=== PATIENT | female | born 1980 | race Caucasian/White ===

== ENCOUNTER 2016-12-19 20:59 | Emergency (ER) | payer MEDICAID | END 2016-12-19 22:20 | disposition home or self-care (01) | DX: L76.34 Postprocedural seroma of skin and subcutaneous tissue following other procedure (principal); Y83.8 Other surgical procedures as the cause of abnormal reaction of the patient, or of later complication, without mention of misadventure at the time of the procedure ==

== ENCOUNTER 2017-03-27 23:42 | Emergency (ER) | payer BC, MEDICAID ==
[2017-03-27 23:49] VITALS: BP 147/90
[2017-03-28] MEDS ORDERED: DEXAMETHASONE 10 MG/ML VIAL PO STA (01:09)
[2017-03-28] MEDS ORDERED: IBUPROFEN 600 MG TABLET PO STA (01:09)
--- NOTE | 2017-03-28 01:13 | XRAY Preliminary Report ---
Exam: XR Shoulder 3 View LT IMPRESSION: 1. No acute bony abnormality. 2. Small well-corticated ossific fragment at the superior margin of the glenohumeral joint, likely an accessory ossicle or a sequela of remote injury. [facility] SITE ID: [id number]
[2017-03-28] MEDS ORDERED: CHERRY SYRUP 10 ML UDC PO ONE (01:18)
[2017-03-28] MEDS ORDERED: IBUPROFEN 600 MG TABLET PO ONE (01:18)
[2017-03-28] MEDS ORDERED: DEXAMETHASONE 10 MG/ML VIAL ONE (01:18)
--- NOTE | 2017-03-28 01:21 | XRAY Report ---
EXAM: LEFT SHOULDER RADIOGRAPHY EXAM DATE: 03/28/2017 12:37 AM. CLINICAL HISTORY: Increasing left shoulder pain since Saturday. COMPARISON: None. TECHNIQUE: 3 views. FINDINGS: Bones: No acute displaced fracture or bone lesion. There is a small well-corticated ossific fragment projecting near the glenohumeral joint superiorly, seen on the internal and external rotated views. T his is likely paraarticular. This may be a sequela of remote injury or an accessory ossicle. Joints: No dislocation. Soft tissues: The visualized hemithorax is unremarkable. No soft tissue swelling. IMPRESSION: 1. No acute bony abnormality. 2. Small well-corticated ossific fragment at the superior margin of the glenohumeral joint, likely an accessory ossicle or a sequela of remote injury. [facility] Referring Provider Line: [phone] SITE ID: [id number]
--- NOTE | 2017-03-28 01:23 | ED Physician Documentation ---
PD HPI UPPER EXT INJURY - Stated complaint Stated Complaint: LT SHOULDER PX - Chief complaint Chief Complaint: Ext Problem - History obtained from History obtained from: Patient, Family - History of Present Illness Location: Left, Shoulder Where injury occurred: Home Timing - onset: Yesterday Timing - details: Gradual onset, Still present Improved by: Immobilization Worsened by: Moving, Palpating Associated symptoms: No: Weakness, Numbness, Tingling, Swelling, Discolored Similar symptoms before: Has not had sx before Recently seen: Not recently seen - Additonal information Additional information: Patient is a 36 year old female with a history of bursitis in her hip, who is presenting to the emergency department for left sided shoulder pain. patient states that it has been going on the last few days and has become progressively worse. Patient denies any trauma, new activities or repetitive motion. Patient states that she has tried ice, heat and nsaids with little relief. Review of Systems Constitutional: denies: Fever, Chills Nose: denies: Rhinorrhea / runny nose, Congestion Throat: denies: Oral lesions / sores, Sore throat Cardiac: denies: Chest pain / pressure, Palpitations Respiratory: denies: Cough GI: denies: Abdominal Pain, Nausea, Vomiting : denies: Dysuria, Frequency, Hesitancy Skin: denies: Rash, Lesions, Abrasion (s) Musculoskeletal: reports: Extremity pain, Joint pain. denies: Extremity swelling, Joint swelling Neurologic: denies: Generalized weakness, Focal weakness, Numbness, Difficulty speaking Immunocompromised: denies: Immunocompromised PD PAST MEDICAL HISTORY - Past Medical History Past Medical History: Yes Cardiovascular: None Respiratory: None Neuro: None Endocrine/Autoimmune: None GI: None GRINDER SET UP OPERATOR: None : None HEENT: None Psych: Depression, Anxiety Musculoskeletal: Osteoarthritis, Chronic back pain, Other Derm: None - Past Surgical History Past Surgical History: Yes /GRINDER SET UP OPERATOR: Dilation and currettage - Present Medications Home Medications: Ambulatory Orders Medication Instructions Recorded Confirmed Gabapentin 300 mg PO QPM PRN 01/05/15 07/22/15 Diclofenac Sodium 50 mg PO BID PRN 07/22/15 07/22/15 - Allergies Allergies/Adverse Reactions: Allergies Allergy/AdvReac Type Severity Reaction Status Date / Time Penicillins Allergy Unknown Verified 03/27/17 23:49 - Social History Does the pt smoke?: No Smoking Status: Never smoker Does the pt drink ETOH?: Yes ETOH Use: Beer Does the pt have substance abuse?: No - Immunizations Immunizations are current?: Yes - POLST Patient has POLST: No PD ED PE NORMAL - Vitals Vital signs reviewed: Yes - General General: Alert and oriented X 3, No acute distress - HEENT HEENT: Atraumatic, PERRL - Neck Neck: Supple, no meningeal sign - Cardiac Cardiac: RRR, No murmur - Respiratory Respiratory: No respiratory distress - Abdomen Abdomen: Soft - Derm Derm: Normal color, Warm and dry, No rash - Neuro Neuro: Alert and oriented X 3, No sensory deficit, Normal speech - Psych Psych: Normal mood, Normal affect PD ED PE EXPANDED - Extremities Extremities: Left shoulder (tenderness to palpation of anterior shoulder, decreased rom secondary to pain, no swelling, erythema or other rash), Sensory intact, Vascular intact. No: Decreased/absent pulse Results - Vitals Vitals: Vital Signs - 24 hr 03/27/17 23:47 Temperature 36 C L Heart Rate 75 Respiratory 20 Rate Blood Pressure 147/90 H O2 Saturation 97 Oxygen O2 Source Room air - Rads (name of study) left shoulder x-ray Radiology: Final report received (no acute bony abnormality), See rad report PD MEDICAL DECISION MAKING - ED course Complexity details: reviewed old records, reviewed results, re-evaluated patient , considered differential, d/w patient, d/w family ED course: Patient was seen and examined at bedside. Patient was sent for imaging. when patient returned she was treated with ibuprofen and decadron. there was no acute abnormality on imaging. Patient had good peripheral pulses and reproducible. Patient required no further inpatient work up and was stable for discharge with outpatient follow up. Departure - Departure Disposition: 01 Home, Self Care Clinical Impression: Left anterior shoulder pain Condition: Good Instructions: Exercise Shoulder Isometric Follow-Up: Malissa Sheehan ARNP [Primary Care Provider] - Within 1 week Comments: Your diagnostics today were within normal limits. there was no acute bony abnormality on your x-ray. it is difficult to say what is causing your pain. A tendonitis versus a bursitis. They are both treated with ice/heat and nsaids. If you symptoms persist for more than 7-10 days you should follow up with your pmd or your orthopedist. You may return to the emergency department at any time if necessary for new, worsening or uncontrollable symptoms.
== END 2017-03-28 01:34 | disposition home or self-care (01) ==
LOC: ED 23:42
DX: M25.512 Pain in left shoulder (principal); Z87.39 Personal history of other diseases of the musculoskeletal system and connective tissue
CPT/HCPCS: 73030; 99283; A9270

== ENCOUNTER 2017-11-18 08:00 | Outpatient (CLI) | payer BC, OTHER ==
[2017-11-18 17:28] LABS: BILIRUBIN,URINE NEGATIVE (NEGATIVE); GLUCOSE, URINE (UA) NEGATIVE (NEGATIVE); KETONES,URINE (UA) NEGATIVE (NEGATIVE); LEUKOCYTE ESTERASE, URINE TRACE (NEGATIVE); NITRITE,URINE POSITIVE (NEGATIVE); OCCULT BLOOD,URINE LARGE (NEGATIVE); PROTEIN,URINE NEGATIVE (NEGATIVE); UROBILINOGEN,URINE 0.2 (NORMAL) E.U./dL (NORMAL)
[2017-11-18 17:38] LABS: BACTERIA,URINE Moderate /HPF (None Seen); CLARITY,URINE CLEAR (CLEAR); RBC,URINE 0-5 /HPF (0-5); SQUAMOUS EPITHELIAL CELL,UR FEW Squamous (<= Few)
== END 2017-11-18 08:01 ==
LOC: LAB.S 08:00
PROVIDERS: ATTEND Nurse Practitioner Family
DX: R30.0 Dysuria (principal)
CPT/HCPCS: 81001; 87086

== ENCOUNTER 2019-04-08 16:44 | Outpatient (CLI) | payer OTHER ==
--- NOTE | 2019-04-09 09:23 | Mammography Report ---
Reason: SCREEN NEOPLASM,BREAST,ROUTINE MAMMOGRAM Procedure Date: 04/08/2019 Accession Number: [id number] / [id number] Procedure: ABBY - Screening Mammo w/Mateo CPT Code: FULL RESULT: EXAM: Screening Mammo w/Mateo DATE: 04/08/2019 5:15 PM CLINICAL HISTORY: Screening TECHNIQUE: (B) - Bilateral CC and MLO views were obtained. Indication bilateral 3-D mapping was performed. COMPARISON: None PARENCHYMAL PATTERN: (A) - The breasts demonstrate scattered fibroglandular densities bilaterally. FINDINGS: There are no suspicious masses, calcifications, or areas of distortion. IMPRESSION: Negative examination. BI-RADS category 1. RECOMMENDATION: (ANNUAL) - Recommend routine annual screening mammography. BI-RADS CATEGORY: (1) - Negative. STANDARD QUALIFYING STATEMENTS: 1. This examination was not reviewed with the aid of Computer-Aided Detection (CAD). 2. A negative or benign imaging report should not preclude biopsy if clinically suspicious findings are present. 3. Dense breasts may obscure an underlying neoplasm. 4. This examination was reviewed with the aid of 3D breast imaging (tomosynthesis).
== END 2019-04-08 16:45 | disposition home or self-care (01) ==
LOC: DI 16:44
PROVIDERS: ATTEND Naturopath
DX: Z12.31 Encounter for screening mammogram for malignant neoplasm of breast (principal)
CPT/HCPCS: 77063; 77067

== ENCOUNTER 2019-08-26 07:11 | Outpatient (CLI) | payer OTHER ==
[2019-08-26 10:35] LABS: BASOPHILS # (AUTO) 0.1 10^3/uL (0.0-0.1); BASOPHILS % (AUTO) 0.5 %; EOSINOPHILS # (AUTO) 0.3 10^3/uL (0.0-0.7); EOSINOPHILS % (AUTO) 2.9 %; HGB - HEMOGLOBIN 13.7 g/dL (12.0-16.0); LYMPHOCYTES # (AUTO) 3.8 10^3/uL (1.5-3.5); LYMPHOCYTES % (AUTO) 36.1 %; MEAN CORPUSCULAR HEMOGLOBIN 30.1 pg (27.0-31.0); MEAN CORPUSCULAR HGB CONC 32.8 g/dL (32.0-36.0); MEAN CORPUSCULAR VOLUME 91.9 fL (81.0-99.0); MEAN PLATELET VOLUME 12.4 fL (7.9-10.8); MONOCYTES # (AUTO) 0.5 10^3/uL (0.0-1.0); MONOCYTES % (AUTO) 4.6 %; NEUTROPHILS # (AUTO) 5.8 10^3/uL (1.5-6.6); NEUTROPHILS % (AUTO) 55.4 %; PLT - PLATELET COUNT 225 10^3/uL (130-450); RED BLOOD COUNT 4.55 10^6/uL (4.20-5.40); RED CELL DISTRIBUTION WIDTH 12.4 % (12.0-15.0); WHITE BLOOD COUNT 10.5 x10^3/uL (4.8-10.8)
[2019-08-26 11:08] LABS: ALBUMIN 3.7 g/dL (3.2-5.5); ALKALINE PHOSPHATASE 86 IU/L (42-121); ALT ALANINE AMINOTRANSFERASE 21 IU/L (10-60); AST ASPARTATE AMINOTRANSFERASE 21 IU/L (10-42); BILIRUBIN,TOTAL 0.7 mg/dL (0.2-1.0); BUN - BLOOD UREA NITROGEN 13 mg/dL (6-20); CALCIUM 9.4 mg/dL (8.5-10.3); CARBON DIOXIDE - CO2 25 mmol/L (21-32); CHLORIDE 100 mmol/L (101-111); CHOL/HDL RATIO 9.1 (<4.4); CHOLESTEROL 310 mg/dL; CREATININE 0.6 mg/dL (0.4-1.0); GFR - MDRD 110 (>89); GLUCOSE 240 mg/dL (70-100); HDL CHOLESTEROL 34 mg/dL; SODIUM 133 mmol/L (135-145); TOTAL PROTEIN 7.4 g/dL (6.7-8.2)
[2019-08-26 11:28] LABS: LDL CHOLESTEROL,DIRECT 93 mg/dL; LDLD/HDL RATIO 2.7 (<4.4)
[2019-08-26 11:36] LABS: HEMOGLOBIN A1C 1.14 g/dL; HEMOGLOBIN A1C % 9.6 % (4.6-6.2)
[2019-08-26 11:49] LABS: FREE T4 (FREE THYROXINE) 0.69 ng/dL (0.58-1.64)
== END 2019-08-26 07:12 | disposition home or self-care (01) ==
LOC: LAB.S 07:11
PROVIDERS: ATTEND Registered Nurse
DX: E11.9 Type 2 diabetes mellitus without complications (principal); E66.01 Morbid (severe) obesity due to excess calories; F32.9 Major depressive disorder, single episode, unspecified; F41.9 Anxiety disorder, unspecified
CPT/HCPCS: 36415; 80053; 80061; 83036; 83721; 84439; 84443; 85025

== ENCOUNTER 2019-10-19 07:00 | Outpatient (CLI) | payer OTHER ==
[2019-10-19 10:47] LABS: CALCIUM 9.2 mg/dL (8.5-10.3); CREATININE 0.7 mg/dL (0.4-1.0)
[2019-10-19 11:00] LABS: HB2 TOTAL 13.2 g/dL; HEMOGLOBIN A1C 0.78 g/dL; HEMOGLOBIN A1C % 7.6 % (4.6-6.2)
[2019-10-19 11:01] LABS: CREATININE,URINE 191.3 mg/dL; MICROALBUM/CREATININE RATIO,UR 20.4 ug/mg (<30.0); MICROALBUMIN,URINE 3.9 mg/dL (0-300.0)
[2019-10-19 11:40] LABS: FREE T4 (FREE THYROXINE) 1.38 ng/dL (0.58-1.64)
== END 2019-10-19 07:01 | disposition home or self-care (01) ==
LOC: LAB.S 07:00
PROVIDERS: ATTEND Registered Nurse
DX: E11.9 Type 2 diabetes mellitus without complications (principal); E03.9 Hypothyroidism, unspecified
CPT/HCPCS: 36415; 80048; 82043; 82570; 83036; 84439; 84443

== ENCOUNTER 2019-12-11 07:02 | Outpatient (CLI) | payer OTHER ==
[2019-12-11 12:16] LABS: FREE T4 (FREE THYROXINE) 1.27 ng/dL (0.58-1.64)
== END 2019-12-11 07:03 | disposition home or self-care (01) ==
LOC: LAB.S 07:02
PROVIDERS: ATTEND Registered Nurse
DX: E03.9 Hypothyroidism, unspecified (principal)
CPT/HCPCS: 36415; 84439; 84443

== ENCOUNTER 2020-06-22 07:15 | Outpatient (CLI) | payer OTHER ==
[2020-06-22 15:16] LABS: ALBUMIN 3.9 g/dL (3.2-5.5); ALBUMIN/GLOBULIN RATIO 1.2 (1.0-2.2); BILIRUBIN,TOTAL 0.6 mg/dL (0.2-1.0); CALCIUM 9.3 mg/dL (8.5-10.3); CREATININE 0.6 mg/dL (0.4-1.0); TOTAL PROTEIN 7.2 g/dL (6.7-8.2)
[2020-06-22 16:08] LABS: FREE T4 (FREE THYROXINE) 1.4 ng/dL (0.58-1.64)
[2020-06-22 18:53] LABS: HEMOGLOBIN A1c% 7.6 % (4.27-6.07)
== END 2020-06-22 07:16 | disposition home or self-care (01) ==
LOC: LAB.S 07:15
PROVIDERS: ATTEND Registered Nurse
DX: E11.9 Type 2 diabetes mellitus without complications (principal); E03.9 Hypothyroidism, unspecified
CPT/HCPCS: 36415; 80053; 83036; 84439; 84443

== ENCOUNTER 2021-06-22 08:00 | Outpatient (CLI) | payer OTHER | END 2021-06-22 23:59 | disposition home or self-care (01) | LOC: LAB.S 08:00 | PROVIDERS: ATTEND Emergency Medicine | DX: R30.0 Dysuria (principal) | CPT/HCPCS: 87086 ==

== ENCOUNTER 2021-06-24 06:57 | Emergency (ER) | payer OTHER ==
[2021-06-24] MEDS ORDERED: SODIUM CHLORIDE 0.9% 1,000 ML IV STA (07:32)
[2021-06-24] MEDS ORDERED: KETOROLAC 30 MG/ML VIAL IVP STA (07:32)
--- NOTE | 2021-06-24 07:35 | ED Physician Documentation ---
PD HPI BACK PAIN - Stated complaint Stated Complaint: LOW BACK PX - Chief complaint Chief Complaint: Back Pain - History obtained from History obtained from: Patient, Family - History of Present Illness Timing - onset: How many days ago (5) Timing - duration: Days (5) Timing - details: Gradual onset, Still present Location: Lower, Right Quality: Pain, Spasm, Sharp Associated symptoms: No: Fever, Weakness, Numbness, Incontinent of urine, Unable to urinate, Hematuria, Incontinent of stool Improves with: Rest, Position Worsened by: Movement Contributing factors: No: Lifting, Twisting Similar symptoms before: Diagnosis (kidney infection) Recently seen: Other (seen at urgent care with UTI) - Additional information Additional information: 41-year-old female has developed some pain in her lower back on the right side and she has been treated for urinary tract infection through the urgent care clinic. She indicates that she has had some nausea and vomiting earlier in the week as well as some diarrhea and she has some urinary frequency. She does have a history of diabetes. She drinks lots of fluid. She is awakened this morning early by severe pain in her right lower back. She is concerned there may be an issue with kidney infection and that she might not be resolving her infection. Review of Systems Constitutional: denies: Fever Ears: denies: Ear pain Nose: denies: Congestion Throat: denies: Sore throat Cardiac: denies: Chest pain / pressure Respiratory: denies: Dyspnea, Cough GI: reports: Abdominal Pain, Nausea, Vomiting, Diarrhea : reports: Dysuria (resolved), Frequency PD PAST MEDICAL HISTORY - Past Medical History Past Medical History: Yes Cardiovascular: Hypertension, High cholesterol Respiratory: None Neuro: None Endocrine/Autoimmune: Type 2 diabetes GI: None INSPECTOR QUALITY ASSURANCE: None : None HEENT: None Psych: Depression, Anxiety Musculoskeletal: Osteoarthritis, Chronic back pain, Other Derm: None - Past Surgical History Past Surgical History: Yes Ortho: Other /INSPECTOR QUALITY ASSURANCE: Dilation and currettage - Present Medications Home Medications: Ambulatory Orders Medication Instructions Recorded Confirmed Diclofenac Sodium 50 mg PO BID PRN 07/22/15 06/24/21 Atorvastatin [Lipitor] 10 mg ORAL DAILY 06/24/21 06/24/21 Cyclobenzaprine [Flexeril] 10 mg PO TID PRN #20 tablet 06/24/21 HYDROcod/ACETAM 5/325 [[place] 5/325] 1 - 2 tablet PO Q6H PRN #14 tablet 06/24/21 Levothyroxine [Synthroid] 125 mcg PO QDAC 06/24/21 06/24/21 Lisinopril [Zestril] 10 mg PO DAILY 06/24/21 06/24/21 Sulfamethox/Trimeth 800/160 1 tablet PO BID 06/24/21 06/24/21 [Bactrim Ds] Venlafaxine ER [Effexor ER] 75 mg PO DAILY 06/24/21 06/24/21 metFORMIN [Glucophage] 1,000 mg ORAL BID 06/24/21 06/24/21 - Allergies Allergies/Adverse Reactions: Allergies Allergy/AdvReac Type Severity Reaction Status Date / Time Penicillins Allergy Unknown Verified 06/24/21 07:04 - Social History Does the pt smoke?: No Smoking Status: Never smoker Does the pt drink ETOH?: Yes Does the pt have substance abuse?: No - Immunizations Immunizations are current?: Yes - POLST Patient has POLST: No PD ED PE NORMAL - Vitals Vital signs reviewed: Yes (hypertensive ) - General General: Alert and oriented X 3, No acute distress, Well developed/nourished - HEENT HEENT: Atraumatic, PERRL, EOMI - Neck Neck: Supple, no meningeal sign, No bony TTP - Respiratory Respiratory: No respiratory distress - Abdomen Abdomen: Normal bowel sounds, Soft, Non tender, Non distended, No organomegaly - Back Back: No CVA TTP, No spinal TTP, Other (There is minimal right lower lumbar paraspinous muscle tenderness to palpation ) - Derm Derm: Normal color, Warm and dry, No rash - Extremities Extremities: No deformity, No edema - Neuro Neuro: Alert and oriented X 3, analog circuit designer 2-12 intact, No motor deficit, No sensory deficit, Normal speech Eye Opening: Spontaneous Motor: Obeys Commands Verbal: Oriented GCS Score: 15 - Psych Psych: Normal mood, Normal affect Results - Vitals Vitals: Vital Signs - 24 hr 06/24/21 07:06 Temperature 36.1 C L Heart Rate 83 Respiratory 18 Rate Blood Pressure 143/74 H O2 Saturation 97 Oxygen O2 Source Room air - Labs Labs: Laboratory Tests 06/24/21 07:20 Urine Color YELLOW Urine Clarity CLEAR Urine pH 6.0 Ur Specific [place] 1.025 Urine Protein NEGATIVE Urine Glucose (UA) NEGATIVE Urine Ketones NEGATIVE Urine Occult Blood NEGATIVE Urine Nitrite NEGATIVE Urine Bilirubin NEGATIVE Urine Urobilinogen 0.2 (NORMAL) Ur Leukocyte Esterase NEGATIVE Ur Microscopic Review NOT INDICATED Urine Culture Comments NOT INDICATED Urine HCG, Qual NEGATIVE Procedures - Bedside sono Bedside sono by EMP: With use of bedside ultrasound the right kidney is imaged there is no evidence of hydronephrosis and the kidney is not sonographically tender. There is tenderness to the paraspinous muscle tissues below the kidney. - IVC sono (time) 0730 Bedside IVC sono: IVC measures (cm) (1.27), Dehydration (est 1 lite deficit) PD MEDICAL DECISION MAKING - ED course Complexity details: reviewed old records, reviewed results, re-evaluated patient, considered differential, d/w patient ED course: 41-year-old female with right lower back pain appears to have musculoskeletal pain urinalysis is unremarkable today and she is deathly afraid of needles. She was found to be dehydrated on interrogation the inferior vena cava and she has had diarrhea as well as vomiting and I thought it reasonable to check her electrolytes and provide fluids. The patient was not willing to undergo this. This also appeared reasonable. She is administered a oral dose of hydrocodone. I do not believe the patient has pyelonephritis but is certainly possible she has the dehydration related to her diabetes and the infection. We did not find glucose in the urine this morning I believe she will do well with conservative treatment. Departure - Departure Disposition: 01 Home, Self Care Clinical Impression: Lumbar paraspinal muscle spasm Condition: Stable Instructions: ED Spasm Back No Trauma Follow-Up: Aida Gonzalez ARNP [Primary Care Provider] - Prescriptions: Cyclobenzaprine [Flexeril] 10 mg PO TID PRN #20 tablet PRN Reason: Spasms HYDROcod/ACETAM 5/325 [[place] 5/325] 1 - 2 tablet PO Q6H PRN #14 tablet PRN Reason: Pain Comments: This morning on evaluation in the emergency department your urinalysis is clear. We did determine that you are mildly dehydrated and an additional quart of fluid today is indicated. There was no evidence of glucose or blood in the urine. The tenderness to your back did not appear to be over the kidney but to the muscles next to the spine below that. This is a common area to have muscle spasm from carrying or moving awkward items or too heavy of items. This can be exacerbated by dehydration. We have provided some pain medication and a muscle relaxant. The expectation is to have resolution of the symptoms within the week.
[2021-06-24 07:40] LABS: BILIRUBIN,URINE NEGATIVE (NEGATIVE); CLARITY,URINE CLEAR (CLEAR); GLUCOSE, URINE (UA) NEGATIVE (NEGATIVE); KETONES,URINE (UA) NEGATIVE (NEGATIVE); LEUKOCYTE ESTERASE, URINE NEGATIVE (NEGATIVE); NITRITE,URINE NEGATIVE (NEGATIVE); OCCULT BLOOD,URINE NEGATIVE (NEGATIVE); PROTEIN,URINE NEGATIVE (NEGATIVE); UROBILINOGEN,URINE 0.2 (NORMAL) E.U./dL (NORMAL)
[2021-06-24 07:41] LABS: HCG UR QUAL NEGATIVE
[2021-06-24] MEDS ORDERED: HYDROcod/ACETAM 5/325 MG TABLET PO STA (07:44)
[2021-06-24 08:04] VITALS: BP 124/64
== END 2021-06-24 08:12 | disposition home or self-care (01) ==
LOC: ED 06:57
DX: M62.830 Muscle spasm of back (principal); M54.5 Low back pain; E86.0 Dehydration; R11.2 Nausea with vomiting, unspecified; R19.7 Diarrhea, unspecified; R35.0 Frequency of micturition; I10 Essential (primary) hypertension; E11.9 Type 2 diabetes mellitus without complications; Z79.84 Long term (current) use of oral hypoglycemic drugs
CPT/HCPCS: 81003; 81025; 99283; 99284; A9270; 80053; 81001; 83690; 85025; 87086

== ENCOUNTER 2021-10-19 16:48 | Outpatient (CLI) | payer OTHER ==
--- NOTE | 2021-10-20 20:03 | Ultrasound Report ---
PROCEDURE: Pelvic w/Transvaginal INDICATIONS: UTERINE BLEEDING, PELVIC PAIN TECHNIQUE: Real-time scanning was performed of the pelvic organs, with image documentation. Additional endovagi nal scanning was necessary due to incomplete visualization of the adnexal and endometrial structures by transabdominal scanning. COMPARISON: None. FINDINGS: No pathologic free abdominal or pelvic fluid. Uterus: Uterus is normal in size at 7.8 x 4.6 x 5 cm. The uterus is anteverted. The endometrium jacqueline ures 6 mm in combined thickness. The myometrium appears heterogeneous with small uterine fibroids no royer. The junctional zone is not well visualized. A posterior fibroid is seen measuring 1.2 x 0.8 x 1 cm that is predominantly intramural, but a small submucosal component is suspected. A left lateral valenzuela bserosal fibroid measures 0.8 x 1 x 0.6 cm. Nabothian cysts are noted in the cervix. Ovaries: The ovaries are suboptimally visualized due to patient body habitus. The right ovary measur es 4.2 x 2 x 3 cm (13 cc). The left ovary measures 2.8 x 1.6 x 2 cm (4.6 cc). Small echogenic foci ar e seen within the left ovary on transabdominal images of the nonspecific but could represent small ca lcifications. The left ovary is not well-visualized on transvaginal scanning. IMPRESSION: 1.Heterogeneous uterine myometrium with small uterine fibroids, one of which may have a small submuco roger component. 2.Possible superimposed uterine adenomyosis. Reviewed by: Sean Metz MD on 10/20/2021 8:02 PM PST Approved by: Sean Metz MD on 10/20/2021 8:02 PM PST Station ID: [id number]
== END 2021-10-19 16:49 | disposition home or self-care (01) ==
LOC: DI 16:48
PROVIDERS: ATTEND Obstetrics & Gynecology
DX: N93.8 Other specified abnormal uterine and vaginal bleeding (principal); R10.2 Pelvic and perineal pain; D25.2 Subserosal leiomyoma of uterus; D25.1 Intramural leiomyoma of uterus

== ENCOUNTER 2021-11-14 14:57 | Outpatient (CLI) | payer OTHER ==
--- NOTE | 2021-11-15 11:46 | Mammography Report ---
BILATERAL DIGITAL SCREENING MAMMOGRAM 3D/2D: 11/14/2021 CLINICAL: Routine screening. Comparison is made to exam dated: 04/08/2019 mammogram - [facility]. The tissue of both breasts is heterogeneously dense. This may lower the sensitivity of mammography. No significant masses, calcifications, or other findings are seen in either breast. There has been no significant interval change. IMPRESSION: NEGATIVE There is no mammographic evidence of malignancy. A 1 year screening mammogram is recommended. This exam was interpreted at Station ID: [id number]. NOTE: For mammograms, a report in lay terms will be sent to the patient. Approximately 15% of breast malignancies will not be visualized mammographically. In the management of a palpable breast mass, a negative mammogram must not discourage biopsy of a clinically suspicious lesion. Electronically Signed By: Adrian Andrade M.D., jr/radha:11/15/2021 09:10:57 ACR BI-RADS Category 1: Negative 3341F PARENCHYMAL PATTERN: (D) - The breast(s) demonstrate(s) heterogeneously dense fibroglandular [place]ira. BI-RADS CATEGORY: (1) - 1 RECOMMENDATION: (ANNUAL) - Recommend routine annual screening mammography. [id number] 1 year screening LATERALITY: (B)
== END 2021-11-14 14:58 | disposition home or self-care (01) ==
LOC: DI.S 14:57
PROVIDERS: ATTEND Obstetrics & Gynecology
DX: Z12.31 Encounter for screening mammogram for malignant neoplasm of breast (principal)

== ENCOUNTER 2022-01-04 07:00 | Outpatient (CLI) | payer OTHER ==
[2022-01-04 14:35] LABS: BASOPHILS # (AUTO) 0.1 10^3/uL (0.0-0.1); BASOPHILS % (AUTO) 0.4 %; EOSINOPHILS # (AUTO) 0.5 10^3/uL (0.0-0.7); EOSINOPHILS % (AUTO) 3.2 %; HCT - HEMATOCRIT 43.6 % (37.0-47.0); HGB - HEMOGLOBIN 14.2 g/dL (12.0-16.0); LYMPHOCYTES # (AUTO) 4.3 10^3/uL (1.5-3.5); LYMPHOCYTES % (AUTO) 29.9 %; MEAN CORPUSCULAR HGB CONC 32.6 g/dL (32.0-36.0); MEAN CORPUSCULAR VOLUME 92.2 fL (81.0-99.0); MEAN PLATELET VOLUME 12.5 fL (7.9-10.8); MONOCYTES # (AUTO) 0.7 10^3/uL (0.0-1.0); NEUTROPHILS # (AUTO) 8.8 10^3/uL (1.5-6.6); NEUTROPHILS % (AUTO) 60.9 %; PLT - PLATELET COUNT 255 10^3/uL (130-450); RED BLOOD COUNT 4.73 10^6/uL (4.20-5.40); RED CELL DISTRIBUTION WIDTH 12.5 % (12.0-15.0); WHITE BLOOD COUNT 14.5 x10^3/uL (4.8-10.8)
[2022-01-04 15:09] LABS: ALBUMIN 4.1 g/dL (3.2-5.5); ALBUMIN/GLOBULIN RATIO 1.3 (1.0-2.2); BILIRUBIN,TOTAL 0.7 mg/dL (0.2-1.0); CALCIUM 9.4 mg/dL (8.5-10.3); CREATININE 0.6 mg/dL (0.4-1.0); POTASSIUM 4.6 mmol/L (3.5-5.0); TOTAL PROTEIN 7.3 g/dL (6.7-8.2)
[2022-01-04 15:24] LABS: THYROID STIMULATING HORMONE 1.87 uIU/mL (0.34-5.60)
[2022-01-04 21:13] LABS: ESTIMATED AVERAGE GLUCOSE 209 mg/dL (70-100); HEMOGLOBIN A1c% 8.9 % (4.27-6.07)
== END 2022-01-04 23:59 | disposition home or self-care (01) ==
LOC: LAB.S 07:00
PROVIDERS: ATTEND Obstetrics & Gynecology
DX: E11.9 Type 2 diabetes mellitus without complications (principal); Z68.41 Body mass index [BMI] 40.0-44.9, adult; Z13.220 Encounter for screening for lipoid disorders; L64.9 Androgenic alopecia, unspecified; R42 Dizziness and giddiness; N93.8 Other specified abnormal uterine and vaginal bleeding
CPT/HCPCS: 36415; 80053; 83036; 84443; 85025

== ENCOUNTER 2022-03-29 08:00 | Outpatient (CLI) | payer OTHER | END 2022-03-29 23:59 | disposition home or self-care (01) | LOC: LAB.S 08:00 | PROVIDERS: ATTEND Physician Assistant | DX: J06.9 Acute upper respiratory infection, unspecified (principal); Z20.822 Contact with and (suspected) exposure to COVID-19 ==

== ENCOUNTER 2023-01-14 17:56 | Emergency (ER) | payer OTHER ==
[2023-01-14 18:04] VITALS: BP 167/79
[2023-01-14] MEDS ORDERED: SODIUM CHLORIDE 0.9% 1,000 ML IV STA ×2 (18:49)
[2023-01-14] MEDS ORDERED: LORazepam 1 MG TABLET PO STA (18:49)
--- NOTE | 2023-01-14 18:52 | ED Physician Documentation ---
History of Present Illness - Stated complaint Stated Complaint: NOSE BLEEDING - Chief complaint Chief Complaint: Abd Pain - History obtained from History obtained from: Patient, Family - History of Present Illness Timing: Today Pain level max: 4 Pain level now: 2 - Additonal information Additional information: Patient is a 42-year-old female with a history of diabetes who presents to the emergency department stating that for the past several months she has had intermittent right lower quadrant abdominal pain. Worse with palpation and movement. Nothing makes it better. No fevers. No chills. Has had nausea and vomiting the past 2 days. Today she had an episode of epistaxis and was bleeding briskly from the nose at home. This has since resolved. No fevers. She has had a cough. She occasionally has diarrhea, has not noticed any blood in the stool. Patient is not on any blood thinners. states that she appeared pale and lightheaded on the way to the emergency department. No fevers. No syncope. Has a history of severe anxiety, they state that she needs to be medicated with antianxiety medications prior to IV starts. The patient's is requesting at least 10 mg of Valium. Review of Systems Constitutional: denies: Fever, Chills Nose: denies: Rhinorrhea / runny nose, Congestion Respiratory: denies: Cough GI: denies: Vomiting, Diarrhea, Hematemesis, Bloody / black stool : denies: Dysuria, Frequency, Hesitancy Skin: denies: Rash Musculoskeletal: denies: Neck pain, Back pain Neurologic: denies: Headache PD PAST MEDICAL HISTORY - Past Medical History Cardiovascular: Hypertension, High cholesterol Respiratory: None Neuro: None Endocrine/Autoimmune: Type 2 diabetes GI: None MORNING CAREGIVER: None : None HEENT: None Psych: Depression, Anxiety Musculoskeletal: Osteoarthritis, Chronic back pain, Other Derm: None - Past Surgical History Past Surgical History: Yes Ortho: Other /MORNING CAREGIVER: Dilation and currettage - Present Medications Home Medications: Ambulatory Orders Medication Instructions Recorded Confirmed Diclofenac Sodium 50 mg PO BID PRN 07/22/15 06/24/21 Atorvastatin [Lipitor] 10 mg ORAL DAILY 06/24/21 06/24/21 Cyclobenzaprine [Flexeril] 10 mg PO TID PRN #20 tablet 06/24/21 HYDROcod/ACETAM 5/325 [[place] 5/325] 1 - 2 tablet PO Q6H PRN #14 tablet 06/24/21 Levothyroxine [Synthroid] 125 mcg PO QDAC 06/24/21 06/24/21 Lisinopril [Zestril] 10 mg PO DAILY 06/24/21 06/24/21 Sulfamethox/Trimeth 800/160 1 tablet PO BID 06/24/21 06/24/21 [Bactrim Ds] Venlafaxine ER [Effexor ER] 75 mg PO DAILY 06/24/21 06/24/21 metFORMIN [Glucophage] 1,000 mg ORAL BID 06/24/21 06/24/21 - Allergies Allergies/Adverse Reactions: Allergies Allergy/AdvReac Type Severity Reaction Status Date / Time Penicillins Allergy Unknown Verified 01/14/23 17:58 - Social History Does the pt smoke?: No Smoking Status: Never smoker Does the pt drink ETOH?: Yes Does the pt have substance abuse?: No - Immunizations Immunizations are current?: Yes - POLST Patient has POLST: No PD ED PE NORMAL - Vitals Vital signs reviewed: Yes - General General: Alert and oriented X 3, No acute distress - HEENT HEENT: Moist mucous membranes, Pharynx benign, Other (Nose normal, no dried blood) - Neck Neck: Supple, no meningeal sign - Cardiac Cardiac: RRR, No murmur, Strong equal pulses - Respiratory Respiratory: No respiratory distress, Clear bilaterally - Abdomen Abdomen: Soft, Non tender, Non distended - Back Back: No CVA TTP, No spinal TTP - Derm Derm: Warm and dry, No rash - Extremities Extremities: No edema - Neuro Neuro: Alert and oriented X 3, third hand 2-12 intact, No motor deficit, No sensory deficit, Normal speech Eye Opening: Spontaneous Motor: Obeys Commands Verbal: Oriented GCS Score: 15 - Psych Psych: Normal mood, Normal affect Results - Vitals Vitals: Vital Signs - 24 hr 01/14/23 01/14/23 17:58 18:03 Temperature 36.2 C L 36.5 C Heart Rate 110 H 110 H Respiratory 20 20 Rate Blood Pressure 167/79 H 167/79 H O2 Saturation 99 99 Oxygen O2 Source Room air - Labs Labs: Laboratory Tests 01/14/23 01/14/23 01/14/23 20:00 20:00 20:00 WBC 13.3 H RBC 4.67 Hgb 13.8 Hct 42.3 MCV 90.6 MCH 29.6 MCHC 32.6 RDW 12.4 Plt Count 271 MPV 11.2 H Neut # (Auto) 7.5 H Lymph # (Auto) 4.7 H Yates # (Auto) 0.7 Eos # (Auto) 0.3 Baso # (Auto) 0.1 Absolute Nucleated RBC 0.00 Nucleated RBC % 0.0 PT 9.3 L INR 0.8 APTT 24.8 L Sodium 134 L Potassium 4.5 Chloride 99 L Carbon Dioxide 26 Anion Gap 9.0 BUN 12 Creatinine 0.8 Estimated GFR (MDRD) 78 L Glucose 336 H Calcium 9.8 Total Bilirubin 0.2 AST 14 ALT 17 Alkaline Phosphatase 78 Total Protein 7.7 Albumin 4.0 Globulin 3.7 Albumin/Globulin Ratio 1.1 Lipase 39 Blood Type Antibody Screen 01/14/23 20:00 WBC RBC Hgb Hct MCV MCH MCHC RDW Plt Count MPV Neut # (Auto) Lymph # (Auto) Yates # (Auto) Eos # (Auto) Baso # (Auto) Absolute Nucleated RBC Nucleated RBC % PT INR APTT Sodium Potassium Chloride Carbon Dioxide Anion Gap BUN Creatinine Estimated GFR (MDRD) Glucose Calcium Total Bilirubin AST ALT Alkaline Phosphatase Total Protein Albumin Globulin Albumin/Globulin Ratio Lipase Blood Type A POSITIVE Antibody Screen NEGATIVE - Rads (name of study) CT abdomen pelvis Relevant Findings:: Final report received, See rad report PD Medical Decision Making - ED course Complexity details: reviewed results, re-evaluated patient, considered differential, d/w patient, d/w family ED course: Patient here with multiple medical complaints, accompanied by her . Her CBC does not show any anemia. Platelets are normal. Mildly elevated white blood cell count at 13.3. Coagulation studies do not show any significant abnormalities. Your abdominal panel does reveal an elevated blood glucose, patient is diabetic. No evidence of DKA. No elevated anion gap. Otherwise normal. CT scan of the abdomen pelvis do not show any acute abnormalities. Unclear etiology of her pain. Sounds as if she had significant epistaxis earlier today. This has since resolved. No hypotension here. We will have the patient follow-up with her doctor for further care. Patient and family counseled regarding signs and symptoms for which I believe and urgent re- evaluation would be necessary. This document was made in part using voice recognition software. While efforts are made to proofread this document, sound alike and grammatical errors may occur. Upon arrival to the emergency department, the patient and her were arguing about the need for the patient to be in the emergency department. Originally the patient wanted to leave AGAINST MEDICAL ADVICE. Her would not allow her to do this. Eventually she agreed to take 1 mg of Klonopin before her IV was started due to her needle phobia. After the completion of her work-up and at the time of discharge, the patient became upset that no cause for her symptoms were found. She stormed out of the emergency department slamming the door on the way out of the emergency department. Departure - Departure Disposition: 01 Home, Self Care Clinical Impression: Epistaxis, Hemoptysis Abdominal pain Qualifiers: Abdominal location: right lower quadrant Qualified Code(s): R10.31 - Right lower quadrant pain Condition: Good Instructions: ED Abdominal Pain Female Non-Specific Abdominal Pain, ED Nosebleed, ED Hemoptysis Follow-Up: your,doctor in 1 week [Other] Comments: Your laboratory testing and CT scan did not show any acute abnormalities today. Please follow-up with your doctor for further care. Please return if you worsen. The cause of your abdominal pain is unclear as is the cause of your bleeding earlier today. Discharge Date/Time: 01/14/23 21:57
[2023-01-14] MEDS ORDERED: clonazePAM 0.5 MG TABLET PO STA (19:05)
[2023-01-14 20:14] LABS: BASOPHILS # (AUTO) 0.1 10^3/uL (0.0-0.1); BASOPHILS % (AUTO) 0.4 %; EOSINOPHILS # (AUTO) 0.3 10^3/uL (0.0-0.7); HCT - HEMATOCRIT 42.3 % (37.0-47.0); HGB - HEMOGLOBIN 13.8 g/dL (12.0-16.0); LYMPHOCYTES # (AUTO) 4.7 10^3/uL (1.5-3.5); LYMPHOCYTES % (AUTO) 35.4 %; MEAN CORPUSCULAR HEMOGLOBIN 29.6 pg (27.0-31.0); MEAN CORPUSCULAR HGB CONC 32.6 g/dL (32.0-36.0); MEAN CORPUSCULAR VOLUME 90.6 fL (81.0-99.0); MEAN PLATELET VOLUME 11.2 fL (7.9-10.8); MONOCYTES # (AUTO) 0.7 10^3/uL (0.0-1.0); MONOCYTES % (AUTO) 5.2 %; NEUTROPHILS # (AUTO) 7.5 10^3/uL (1.5-6.6); NEUTROPHILS % (AUTO) 56.5 %; PLT - PLATELET COUNT 271 10^3/uL (130-450); RED BLOOD COUNT 4.67 10^6/uL (4.20-5.40); RED CELL DISTRIBUTION WIDTH 12.4 % (12.0-15.0); WHITE BLOOD COUNT 13.3 x10^3/uL (4.8-10.8)
[2023-01-14 20:17] LABS: INR 0.8 (0.8-1.2); PT - PROTHROMBIN TIME 9.3 secs (9.9-12.6)
[2023-01-14 20:24] LABS: PARTIAL THROMBOPLASTIN TIME 24.8 secs (24.9-33.3)
[2023-01-14 20:25] LABS: ALBUMIN/GLOBULIN RATIO 1.1 (1.0-2.2); BILIRUBIN,TOTAL 0.2 mg/dL (0.2-1.0); CALCIUM 9.8 mg/dL (8.5-10.3); CREATININE 0.8 mg/dL (0.4-1.0); POTASSIUM 4.5 mmol/L (3.5-5.0); TOTAL PROTEIN 7.7 g/dL (6.7-8.2)
[2023-01-14] MEDS ORDERED: iohexoL-300 100 ML VIAL ONE (20:30)
--- NOTE | 2023-01-14 21:29 | CT Report ---
PROCEDURE: ABDOMEN/PELVIS W INDICATIONS: RLQ abd pain CONTRAST: 100mL Omni 300 TECHNIQUE: After the administration of intravenous contrast, 5 mm thick sections acquired from the diaphragms to the symphysis. 5 mm thick coronal and sagittal reformats were acquired. For radiation dose reducti on, the following was used: automated exposure control, adjustment of mA and/or kV according to emilee ent size. COMPARISON: None. FINDINGS: Image quality: Excellent. Lung bases:There is minimal atelectasis. Heart: Heart is normal in size. ABDOMEN: Liver: No mass lesion. Gallbladder: Within normal limits without calcified gallstones. Biliary ducts: No biliary ductal dilatation. Pancreas: Unremarkable. Spleen: Normal in size. Adrenal Glands: No adrenal nodules. Kidneys and Ureters: No hydronephrosis. Stomach and Bowel: Stomach, small bowel loops, and colon are normal in caliber and wall thickness. T he appendix is normal. There is colonic diverticulosis without acute diverticular colitis. Peritoneum: No abnormal intraperitoneal fluid. No free air. Ventral Wall: No hernia. Abdominal Nodes: No retroperitoneal or mesenteric adenopathy by size criteria. Vessels: Aorta and inferior vena cava are normal in size. PELVIS: Pelvic Organs: Unremarkable. Bladder: Unremarkable. Pelvic Nodes: No enlarged lymph nodes. Miscellaneous: No inguinal hernias. Bones: Visualized osseous structures demonstrate no suspicious lesions. IMPRESSION: 1. No acute intra-abdominal abnormality. Specifically, no evidence of appendicitis. Reviewed by: Mark Tellez MD on 01/14/2023 9:28 PM PDT Approved by: Mark Tellez MD on 01/14/2023 9:28 PM PDT Station ID: [id number]
[2023-01-15] MEDS ORDERED: iohexoL-300 100 ML VIAL IVP ONE (02:32)
== END 2023-01-14 21:57 | disposition home or self-care (01) ==
LOC: ED 17:56
DX: R10.31 Right lower quadrant pain (principal); E11.9 Type 2 diabetes mellitus without complications; Z79.84 Long term (current) use of oral hypoglycemic drugs; I10 Essential (primary) hypertension
CPT/HCPCS: 36415; 74177; 80053; 83690; 85025; 85610; 85730; 86850; 86900; 86901; 99283; 99284; A9270; Q9967

== ENCOUNTER 2023-04-29 07:19 | Outpatient (CLI) | payer OTHER ==
[2023-04-29 14:42] LABS: BASOPHILS # (AUTO) 0.1 10^3/uL (0.0-0.1); BASOPHILS % (AUTO) 0.5 %; EOSINOPHILS # (AUTO) 0.3 10^3/uL (0.0-0.7); EOSINOPHILS % (AUTO) 2.5 %; HCT - HEMATOCRIT 38.6 % (37.0-47.0); HGB - HEMOGLOBIN 12.4 g/dL (12.0-16.0); LYMPHOCYTES # (AUTO) 4.4 10^3/uL (1.5-3.5); LYMPHOCYTES % (AUTO) 40.1 %; MEAN CORPUSCULAR HEMOGLOBIN 30.3 pg (27.0-31.0); MEAN CORPUSCULAR HGB CONC 32.1 g/dL (32.0-36.0); MEAN CORPUSCULAR VOLUME 94.4 fL (81.0-99.0); MEAN PLATELET VOLUME 12.1 fL (7.9-10.8); MONOCYTES # (AUTO) 0.6 10^3/uL (0.0-1.0); MONOCYTES % (AUTO) 5.9 %; NEUTROPHILS # (AUTO) 5.5 10^3/uL (1.5-6.6); NEUTROPHILS % (AUTO) 50.4 %; PLT - PLATELET COUNT 208 10^3/uL (130-450); RED BLOOD COUNT 4.09 10^6/uL (4.20-5.40); RED CELL DISTRIBUTION WIDTH 12.5 % (12.0-15.0); WHITE BLOOD COUNT 10.9 x10^3/uL (4.8-10.8)
[2023-04-29 14:56] LABS: ALBUMIN 3.3 g/dL (3.2-5.5); ALKALINE PHOSPHATASE 72 IU/L (42-121); ALT ALANINE AMINOTRANSFERASE 18 IU/L (10-60); AST ASPARTATE AMINOTRANSFERASE 17 IU/L (10-42); BILIRUBIN,TOTAL 0.6 mg/dL (0.2-1.0); BUN - BLOOD UREA NITROGEN 8 mg/dL (6-20); CALCIUM 8.6 mg/dL (8.5-10.3); CARBON DIOXIDE - CO2 24 mmol/L (21-32); CHLORIDE 102 mmol/L (101-111); CHOL/HDL RATIO 6.7 (<4.4); CHOLESTEROL 255 mg/dL; CREATININE 0.6 mg/dL (0.4-1.0); GFR - MDRD 108 (>89); GLUCOSE 253 mg/dL (70-100); HDL CHOLESTEROL 38 mg/dL; POTASSIUM 3.8 mmol/L (3.5-5.0); SODIUM 133 mmol/L (135-145); TOTAL PROTEIN 6.7 g/dL (6.7-8.2); TRIGLYCERIDES 488 mg/dL
[2023-04-29 15:11] LABS: THYROID STIMULATING HORMONE 7.71 uIU/mL (0.34-5.60)
[2023-04-29 15:48] LABS: LDL CHOLESTEROL,DIRECT 123 mg/dL; LDLD/HDL RATIO 3.2 (<4.4)
[2023-04-29 16:03] LABS: FREE T4 (FREE THYROXINE) 0.76 ng/dL (0.58-1.64)
[2023-04-29 22:04] LABS: ESTIMATED AVERAGE GLUCOSE 229 mg/dL (70-100); HEMOGLOBIN A1c% 9.6 % (4.27-6.07)
== END 2023-04-29 07:20 | disposition home or self-care (01) ==
LOC: LAB.S 07:19
PROVIDERS: ATTEND Registered Nurse
DX: E03.9 Hypothyroidism, unspecified (principal); Z13.220 Encounter for screening for lipoid disorders; E10.8 Type 1 diabetes mellitus with unspecified complications
CPT/HCPCS: 36415; 80053; 80061; 83036; 83721; 84439; 84443; 85025

== ENCOUNTER 2023-11-21 07:05 | Outpatient (CLI) | payer OTHER ==
[2023-11-21 15:54] LABS: CALCIUM 9.7 mg/dL (8.5-10.3); CREATININE 0.7 mg/dL (0.6-1.3); POTASSIUM 4.2 mmol/L (3.5-4.5)
[2023-11-21 16:02] LABS: CREATININE,URINE 45.2 mg/dL; PROTEIN/CREATININE RATIO,URINE 0.2 (<=0.2)
[2023-11-21 20:38] LABS: ESTIMATED AVERAGE GLUCOSE 146 mg/dL (70-100); HEMOGLOBIN A1c% 6.7 % (4.27-6.07)
== END 2023-11-21 07:06 | disposition home or self-care (01) ==
LOC: LAB.S 07:05
PROVIDERS: ATTEND Registered Nurse
DX: E11.9 Type 2 diabetes mellitus without complications (principal)
CPT/HCPCS: 36415; 80048; 82570; 83036; 84156

== ENCOUNTER 2024-06-22 12:10 | Outpatient (CLI) | payer MEDICAID ==
[2024-06-22 12:46] LABS: BASOPHILS # (AUTO) 0.1 10^3/uL (0.0-0.1); BASOPHILS % (AUTO) 0.5 %; EOSINOPHILS # (AUTO) 0.3 10^3/uL (0.0-0.7); EOSINOPHILS % (AUTO) 2.2 %; HCT - HEMATOCRIT 44.6 % (37.0-47.0); HGB - HEMOGLOBIN 14.3 g/dL (12.0-16.0); LYMPHOCYTES # (AUTO) 4.1 10^3/uL (1.5-3.5); LYMPHOCYTES % (AUTO) 36.1 %; MEAN CORPUSCULAR HGB CONC 32.1 g/dL (32.0-36.0); MEAN CORPUSCULAR VOLUME 93.5 fL (81.0-99.0); MONOCYTES # (AUTO) 0.6 10^3/uL (0.0-1.0); MONOCYTES % (AUTO) 5.5 %; NEUTROPHILS # (AUTO) 6.3 10^3/uL (1.5-6.6); NEUTROPHILS % (AUTO) 55.4 %; PLT - PLATELET COUNT 242 10^3/uL (130-450); RED BLOOD COUNT 4.77 10^6/uL (4.20-5.40); RED CELL DISTRIBUTION WIDTH 12.2 % (12.0-15.0); WHITE BLOOD COUNT 11.3 x10^3/uL (4.8-10.8)
[2024-06-22 13:14] LABS: ALBUMIN/GLOBULIN RATIO 1.3 (1.0-2.2); ALKALINE PHOSPHATASE 93 IU/L (42-121); ALT ALANINE AMINOTRANSFERASE 13 IU/L (10-60); AST ASPARTATE AMINOTRANSFERASE 14 IU/L (10-42); BILIRUBIN,TOTAL 0.5 mg/dL (0.2-1.0); BUN - BLOOD UREA NITROGEN 11 mg/dL (6-20); CALCIUM 9.6 mg/dL (8.5-10.3); CARBON DIOXIDE - CO2 30 mmol/L (21-32); CHLORIDE 101 mmol/L (101-111); CHOL/HDL RATIO 4.6 (<4.4); CHOLESTEROL 269 mg/dL; CREATININE 0.7 mg/dL (0.6-1.3); GFR - MDRD 90 (>89); GLUCOSE 118 mg/dL (74-104); HDL CHOLESTEROL 58 mg/dL; LDL CHOLESTEROL,CALCULATED 164 mg/dL; LDL/HDL RATIO 2.8 (<4.4); POTASSIUM 4.3 mmol/L (3.5-4.5); SODIUM 137 mmol/L (135-145); TOTAL PROTEIN 7.2 g/dL (6.4-8.9); TRIGLYCERIDES 235 mg/dL; VLDL CHOLESTEROL 47 mg/dL
[2024-06-22 14:00] LABS: FERRITIN 35.2 ng/mL (11.0-306.8)
[2024-06-22 14:43] LABS: ESTIMATED AVERAGE GLUCOSE 143 mg/dL (70-100); HEMOGLOBIN A1c% 6.6 % (4.27-6.07)
== END 2024-06-22 12:11 | disposition home or self-care (01) ==
LOC: LAB 12:10
PROVIDERS: ATTEND Obstetrics & Gynecology
DX: N92.0 Excessive and frequent menstruation with regular cycle (principal); Z13.228 Encounter for screening for other metabolic disorders; Z13.220 Encounter for screening for lipoid disorders; E03.9 Hypothyroidism, unspecified; Z13.0 Encounter for screening for diseases of the blood and blood-forming organs and certain disorders involving the immune mechanism
CPT/HCPCS: 36415; 80053; 80061; 82728; 83036; 83721; 84443; 85025

== ENCOUNTER 2024-07-12 13:27 | Outpatient (CLI) | payer MEDICAID ==
--- NOTE | 2024-07-13 06:07 | Ultrasound Report ---
PROCEDURE: Pelvic w/Transvaginal INDICATIONS: MENORRHAGIA TECHNIQUE: Real-time scanning was performed of the pelvic organs, with image documentation. Additional endovagi nal scanning was necessary due to incomplete visualization of the adnexal and endometrial structures by transabdominal scanning. COMPARISON: CT abdomen and pelvis with contrast 01/14/2023, pelvic ultrasound 10/19/2021 FINDINGS: Uterus: Uterus is anteverted and normal in size at 8.4 x 4.8 x 4.7 cm. The myometrium is heterogeno us. The endometrium measures 11 mm in combined thickness. There is a right anterior fundal intramur al 0.9 x 0.9 x 0.7 cm fibroid. Nabothian cysts are present at the cervix. Ovaries: The right ovary measures 2.9 x 1.5 x 1.7 cm, with a calculated ovarian volume of 3.6 cc. T he left ovary measures 2.4 x 1.4 x 2.0 cm, with a calculated ovarian volume of 3.6 cc. The ovaries h ave a normal sonographic appearance. Less than 12 follicles can be seen in each ovary. No adnexal m asses are seen. No cystic lesions measuring greater than 3 cm. Other: Small amount of free fluid at the posterior cul-de-sac, likely physiologic. IMPRESSION: 1.Small right anterior subcentimeter intramural fibroid. 2.Otherwise, no sonographic abnormality of the uterus or ovaries. Reviewed by: Boo Maldonado MD on 07/13/2024 6:06 AM PDT Approved by: Boo Maldonado MD on 07/13/2024 6:06 AM PDT Station ID: [id number]
== END 2024-07-12 13:28 | disposition home or self-care (01) ==
LOC: DI 13:27
PROVIDERS: ATTEND Obstetrics & Gynecology
DX: D25.1 Intramural leiomyoma of uterus (principal)